=== PATIENT | female | born 1940 | race Two or more races ===

== ENCOUNTER 2025-02-23 17:22 | Emergency (ER) | payer MEDICARE, MEDICAID, SELFPAY ==
--- NOTE | 2025-02-23 17:26 | EKG_ITS ---
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
[2025-02-23 18:25] VITALS: BP 149/71; PULSE 60; RESP 18; TEMP 36.8; O2SAT 97; BMI 28.5
--- NOTE | 2025-02-23 18:37 | XR_ITS ---
EXAMINATION: PA chest single view TECHNIQUE: Upright PA chest single view Date and time: February 23 [id number] hours, comparison November 18, 2022 INDICATIONS: Shortness of breath chest pain radiating to the neck today FINDINGS: Normal heart size Lungs are clear. Osseous structures are intact IMPRESSION: No active disease
--- NOTE | 2025-02-23 18:37 | PD.EDRME ---
Rapid Medical Screening Exam [facility] Arrival date/time: 02/23/25 17:22 This is a case of 84-year-old female with history of diabetes hypertension came in in the emergency room due to chest pain shortness of breath today radiating to the back worsening of the symptoms this patient decided to sought consult here in the emergency room Chief Complaint: Chest Pain Time Seen by Provider: 02/23/25 18:31 Vital signs: Vital Signs Temperature 98.3 F 02/23/25 18:25 Pulse Rate 60 02/23/25 18:25 Respiratory Rate 18 02/23/25 18:25 Blood Pressure 149/71 H 02/23/25 18:25 Pulse Oximetry (%) 97 02/23/25 18:25 Oxygen Delivery Method Room Air 02/23/25 18:25 Exam: Patient is awake alert oriented not in distress nontoxic looking well-hydrated well-nourished normal rate regular rhythm no murmur lungs sound is clear no crackles no rales no retraction no wheezing Clinical Impression: Chest pain
--- NOTE | 2025-02-23 19:08 | PC.NURSE ---
PT CALLED BACK TO BE TAKEN TO RM 8. NO RESPONSE FROM LOBBY OR OUTSIDE X1 @[id number]
[2025-02-23 19:26] LABS: Collection Type, Urine Clean Catch
[2025-02-23 19:35] LABS: Basophils # (Auto) 0.0 Thou/mm3 (0.0-0.2); Basophils % (Auto) 1 % (0-2.5); Eosinophils # (Auto) 0.1 Thou/mm3 (0.0-0.5); Eosinophils % (Auto) 1 % (0-10); Hematocrit 36.7 % (36.0-46.0); Hemoglobin 11.7 g/dL (12.0-16.0); Immature Granulocytes Auto 0.02 Thou/mm3 (0.00-0.00); Lymphocytes # (Auto) 1.4 Thou/mm3 (1.0-4.8); Lymphocytes % (Auto) 19 % (10-50); Mean Corpuscular HGB Conc 31.9 g/dl (31.0-37.0); Mean Corpuscular Hemoglobin 27.3 pg (25.0-35.0); Mean Corpuscular Volume 86 fL (80-100); Monocytes # (Auto) 0.5 Thou/mm3 (0.0-0.8); Monocytes % (Auto) 7 % (0-12); Neutrophils # (Auto) 5.2 Thou/mm3 (1.8-7.7); Neutrophils % (Auto) 72 % (37-80); Nucleated Red Blood Cell # 0.00 Thou/mm3 (0.00-0.00); Nucleated Red Blood Cell % 0 /100 WBC (0); Platelet Count 234 Thou/mm3 (140-440); RDW Standard Deviation 43.6 fL (36.4-46.3); Red Blood Count 4.28 Miln/mm3 (4.00-5.20); White Blood Count 7.2 Thou/mm3 (3.6-11.0)
[2025-02-23 19:45] LABS: Amorphous Crystals,Urine Present (Absent); Bacteria,Urine Rare; Bilirubin,Urine Negative (Negative); Blood,Urine Negative (Negative); Clarity,Urine Turbid (Clear/Hazy); Color,Urine Lt-Yellow (Lt Yel-Yel); Glucose, Urine Negative (Negative); Ketones,Urine Negative (Negative); Leukocyte Esterase,Urine Positive (Negative); Nitrite,Urine Negative (Negative); PH,Urine 6.0 (5.0-7.0); Protein,Urine Negative (Neg - Trace); RBC,Urine 3 /hpf (0-3); Specific Gravity,Urine 1.012 (1.001-1.035); Squamous Epithelial Cell,Urine 5 /hpf (0-5); Urobilinogen,Urine Negative mg/dL (0.0-1.0); WBC,Urine 40 /hpf (0-5)
[2025-02-23 19:48] LABS: D-Dimer < 250 ng/mL (<600)
[2025-02-23 19:56] LABS: B-Type Natriuretic Peptide 235 pg/mL (0-100)
[2025-02-23 20:00] LABS: Alanine Aminotransferase 12 U/L (10-49); Albumin, Serum 4.2 gm/dL (3.4-4.8); Albumin/Globulin Ratio 1.8 (1.2-2.2); Alkaline Phosphatase 92 U/L (46-116); Anion Gap 9 (7-16); Aspartate Amino Transferase < 10 U/L (0-34); BUN/Creatinine Ratio 11 Ratio (12-20); Bilirubin,Total 0.2 mg/dL (0.3-1.2); Blood Urea Nitrogen 11 mg/dL (9-23); Calcium 9.8 mg/dL (8.3-10.6); Calcium (Corrected) 9.8 mg/dL (8.5-10.1); Carbon Dioxide 28.5 mMol/L (20.0-31.0); Chloride 104 mMol/L (98-107); Creatinine (Component) 1.0 mg/dL (0.6-1.3); Estimated Creatinine Clearance 37.7 mL/min (>60); Globulin 2.4 gm/dL (2.3-3.5); Glucose 121 mg/dL (74-106); Osmolality,Calculated 281 (275-295); Potassium 4.8 mMol/L (3.4-5.1); Sodium 141 mMol/L (136-145); Total Protein 6.6 gm/dL (5.7-8.2); Troponin I < 0.020 ng/mL (0.0-0.045); eGFR 56 See Note
[2025-02-23 20:05] VITALS: BP 146/63; PULSE 63; RESP 18; TEMP 36.6; O2SAT 99
--- NOTE | 2025-02-23 20:33 | PD.EDCHEST ---
ED Chest Pain RME/HPI General Chief Complaint: Chest Pain Stated Complaint: C/P RADIATES TO BACK SINCE AM Time Seen by Provider: 02/23/25 18:31 Arrival date/time: 02/23/25 17:22 RME / HPI RME / HPI narrative: 02/23/25 17:22 This is a case of 84-year-old female with history of diabetes hypertension came in in the emergency room due to chest pain shortness of breath today radiating to the back worsening of the symptoms this patient decided to sought consult here in the emergency room Dr. [facility] Evaluation: 84 y/o female with Hx of HTN and Type II DM presents with left-sided chest pain that radiates to the back x approximately 12 hours. Patient took 2 Tylenol tablets at 10 AM which temporarily resolved symptoms. Symptoms completely resolved after taking ASA just [employer] which was prescribed by her PCP for chest pain. Denies any active chest pain. Denies dysuria, increased urinary and frequency. Exam: Patient is awake alert oriented not in distress nontoxic looking well-hydrated well-nourished normal rate regular rhythm no murmur lungs sound is clear no crackles no rales no retraction no wheezing Impression: Chest pain Related Data Home Medications ?Medication ?Instructions ?Recorded ?Confirmed Metformin Hcl 1,000 mg PO BID ##60 05/06/16 03/11/18 glipizide 10 mg tablet 10 mg PO BID ##60 05/06/16 03/11/18 lisinopril 10 mg tablet 10 mg PO QDAY ##30 05/06/16 03/11/18 loratadine 10 mg capsule 10 mg PO QDAY 03/11/18 03/11/18 Allergies Allergy/AdvReac Type Severity Reaction Status Date / Time Penicillins Allergy Severe Hives Verified 02/23/25 17:26 Review of Systems Review of Systems Systems Reviewed: All systems reviewed, normal except as documented Past Medical History Past Medical History CARDIAC: Positive Hypertension ENDOCRINE: Positive Diabetes Mellitus Type 2 ED Exam Narrative Physical exam: GENERAL APPEARANCE: alert and oriented x 4, well-developed, well-nourished, no acute distress VITALS: All vitals were reviewed and the pulse ox is 97% on room air, which is normal according to my interpretation. HEENT: Normocephalic, atraumatic; pupils equal, round, reactive to light; EOMI; mucous membranes pink, moist; oropharynx clear NECK: Supple LUNGS: CTABL; no wheezes, no rales, no rhonchi HEART: Regular rate, regular rhythm; normal S1, S2; no murmurs ABDOMEN: non distended; normal BS; soft, no tenderness, no guarding, no rebound; no masses, no organomegaly, no hernia BACK: no CVA tenderness EXTREMITIES: atraumatic; no edema NEUROLOGIC: awake; alert and oriented x4; cranial nerves II-XII grossly intact; no focal sensory or motor deficits PSYCHIATRIC: appropriate mood and affect SKIN: warm, dry, normal color; no rashes Course Quality Measures none Orders Category Date Time Status EKG (ED ONLY) *Do not use* NOW Care 02/23/25 17:26 Completed EKG (ED Only) Stat Exams 02/23/25 17:26 Draft XR chest 1V Stat Exams 02/23/25 18:37 Completed BNP [B-Type Natriuretic Peptide] Stat Lab 02/23/25 18:49 Completed CBC Stat Lab 02/23/25 18:49 Completed Comprehensive Metabolic Panel Stat Lab 02/23/25 18:49 Completed D-Dimer Stat Lab 02/23/25 18:49 Completed Troponin I Stat Lab 02/23/25 18:49 Completed Urinalysis Stat Lab 02/23/25 18:51 Completed Vital Signs Vital signs: Vital Signs Temperature 98.3 F 02/23/25 18:25 Pulse Rate 60 02/23/25 18:25 Respiratory Rate 18 02/23/25 18:25 Blood Pressure 149/71 H 02/23/25 18:25 Pulse Oximetry (%) 97 02/23/25 18:25 Oxygen Delivery Method Room Air 02/23/25 18:25 Chest Pain MDM Narrative MDM Narrative:: On reevaluation patient states her chest pain resolved after she took Tylenol at home. The pain returned and the patient took an aspirin just prior to coming to the ER. She states that the pain resolved after the aspirin. Patient had no ongoing pain or symptoms at all. Scribe Attestation: I, Angella Franks, am scribing for and in the presence of Dr. Whipple. Provider Notation: Although this document has been carefully reviewed, there may still be some phonetic and other typographical errors. These errors are purely grammatical due to imperfections in the software program and should not be construed in any way to compromise the substance of the patient's medical care during this visit. Patient data External records reviewed:: [facility] previous records (Reviewed prior ED records from 03/26/23. Patient was seen for Chest wall contusion.) Clinical information provided by:: patient Social determinants that could affect healthcare access:: none Patient has the following chronic illnesses:: HTN, Type II DM How is presenting disease/condition affected by chronic disease/condition?: exacerbated by Evaluation data The following diagnostics were reviewed and interpreted by me:: lab results, radiology exam(s) and EKG tracing(s) (EKG at 18:21 shows normal sinus rhythm at 60, normal axis, no ectopy, no signs of acute ischemia, per my interpretation.) Lab and/or radiology exams considered but not ordered:: None Interpretation Summary: RADIOLOGY Chest X-Ray: FINDINGS: Normal heart size Lungs are clear. Osseous structures are intact IMPRESSION: No active disease Medications / Prescriptions Medications or Prescriptions considered but not ordered:: None Medication administrations:: See above if any Consultations Consultation(s) initiated? (list below): No Diagnosis Chest Pain Differential Diagnosis: pneumothorax, stable angina, unstable angina pectoris, atypical chest pain, st elevation myocardial infarction, costochondritis and chest pain Most likely diagnosis given after review of the tests above:: See clinical impression below Admission Indicated Admission indicated?: not indicated Explain why admission is indicated or not indicated:: Patient has no emergent abnormalities in their studies and can be managed on an outpatient basis. Admission Request Was there a request for admission?: No Disposition Plan Disposition Plan: Discharge Discharge Attestation Discharge Attestation: The patient and all family members were given an opportunity to ask questions and understood the discharge instructions. Discharge instructions specifically effects, indications for sooner follow up or return to the emergency department, and the expected course of current diagnosis. Patient condition: Stable Discharge Plan Plan Patient Disposition: HOME (Self Care) Discharge Disposition comment: Stable for discharge home Patient condition on transfer: Stable Prescriptions/Referrals Prescriptions/Med Rec: No Action glipizide 10 MG tablet 10 mg PO BID Qty: 60 lisinopril 10 MG tablet 10 mg PO QDAY Qty: 30 Metformin Hcl 1,000 MG tablet 1,000 mg PO BID Qty: 60 loratadine 10 mg Capsule 10 mg PO QDAY Referrals: [facility] [Provider Group] - In 1 week Jeff Villa MD [Physician, Cardiology] - In 1 week Referral Note: Patient with chest pain in the emergency department. EKG and troponins normal. Problem List Clinical Impression: Chest pain of unknown etiology, ASB (asymptomatic bacteriuria) Patient/Caregiver Discharge Instructions Discharge Activity: activity as tolerated Diet Instructions: No restrictions Education Materials: Communicating About Pain, ED Chest Pain, Uncertain Cause Additional Instructions: Today you were seen in the emergency department for episodes of chest pain. Your EKG and your blood work were totally normal today. There is no signs of heart attack or heart problems. However, I have given you contact information for Dr. Ellen Longoria. He is our collection systems modeler on-call. Please give his office a call and make a follow-up appointment for sometime in the next several days. I have also given you the contact information for the [facility]. You should either follow-up with them or with your primary care doctor within the next several days. Please return to the emergency department if you have any worsening or any further medical problems and we will help you. Print Language: Bahraini Stand Alone Forms: Luana Award Info., Patient Portal Info Letter
[2025-02-23 20:45] VITALS: BP 146/63; PULSE 56; RESP 19; TEMP 37; O2SAT 97
== END 2025-02-23 20:47 | disposition home or self-care (01) ==
PROVIDERS: Nurse Practitioner Family; Emergency Provider Emergency Medicine
DX: R07.89 Other chest pain (principal); R82.71 Bacteriuria; I45.10 Unspecified right bundle-branch block; I10 Essential (primary) hypertension
CPT/HCPCS: 36415; 71045; 80053; 81001; 83880; 84484; 85025; 85379; 93005; 99283